=== PATIENT | female | born 1975 | race Asian ===

== ENCOUNTER → 2018-07-12 | Outpatient (CLI) | payer OTHER ==
--- NOTE | 2018-07-14 09:27 | TST ---
[place] [address] [facility] STRESS TEST Name: JORDYN ALFARO Room: [facility]#: [id number] Admission: 07/12/18 Attend Phys: Patience Rodgers Discharge: Date of : 77 Date of Service: 07/12/18 1615 Report #: [id number] THIS REPORT FOR: //name// CC: Patience Riddle DATE OF SERVICE: 07/12/2018 INDICATION: Chest pain. CARDIAC HISTORY: None. RISK FACTORS: Hypertension and gestational diabetes. The patient exercised per standard Nirmal protocol for a total of 7 minutes and 50 seconds. The resting blood pressure was 126/88 mmHg with a resting pulse rate of 89 beats per minute. At peak stress, the blood pressure was 179/88 mmHg with a peak stress, heart rate of 167 beats per minute. In recovery, the blood pressure was 172/69 mmHg with a recovery heart rate of 100 beats per minute. The patient achieved 93% of the age predicted maximum heart rate and an energy expenditure equivalent to 9.83 mets. The patient denied any chest discomfort with standard Nirmal protocol exercise. The baseline 12-lead EKG shows sinus rhythm with no significant ST or T-wave abnormalities. At peak stress, there is 0.5 mm of horizontal to upsloping ST segment depression noted. At 3 minutes into recovery, the 0.[address] segment depression becomes downsloping with T-wave inversion. These changes persist through the remainder of the recovery phase. There were no significant stress-induced arrhythmias. IMPRESSION: 1. No clinical evidence to suggest stress-induced ischemia. 2. Nondiagnostic EKG with ST segment depression and T-wave inversion late in recovery. RECOMMENDATIONS: Consider repeat stress testing with alternate imaging modality such as myocardial perfusion imaging or echocardiography. <ELECTRONICALLY SIGNED> By: Arash Barajas MD, FACC 07/14/18 0927 1615 1222 Arash Barajas MD, FACC /nt
== END ==
LOC: M.CRD 10:53
DX: R07.2 Precordial pain (principal)